=== PATIENT | female | born 1995 | race Caucasian/White ===

== ENCOUNTER 2021-02-09 19:28 | Emergency (ER) | payer OTHER ==
[2021-02-09 20:20] LABS: BILIRUBIN NEGATIVE (NEGATIVE); BLOOD NEGATIVE Ery/uL (NEGATIVE); CLARITY CLEAR (CLEAR); COLOR YELLOW (YELLOW); GLUCOSE (U) 3+ mg/dL (NORMAL); LEUKOCYTES 1+ Leu/uL (NEGATIVE); NITRITE NEGATIVE (NEGATIVE); PROTEIN NEGATIVE (NEGATIVE); SPECIFIC GRAVITY 1.015 (1.001-1.030); UROBILINOGEN 0.2 mg/dL (0.2-1.0)
[2021-02-09 20:35] LABS: BACTERIA 2+; URINARY WBC 20-50
[2021-02-09] MEDS ORDERED: BACTRIM DS TAB1 EACH PO (20:36)
[2021-02-09] MEDS ORDERED: PYRIDIUM200 MG PO (20:36)
== END 2021-02-09 20:52 | disposition home or self-care (01) ==
LOC: FER 19:28
PROVIDERS: Emergency Medicine
DX: N30.00 Acute cystitis without hematuria (principal); Z88.6 Allergy status to analgesic agent
CPT/HCPCS: 81001; 99283

== ENCOUNTER 2021-03-01 16:20 | Emergency (ER) | payer OTHER ==
[~2021-03-01 16:20] MED LIST: BACTRIM DS TAB1 EACH PO; PYRIDIUM200 MG PO
[2021-03-01] MEDS ORDERED: NAPROXEN500 MG PO (17:32)
[2021-03-01] MEDS ORDERED: BACLOFEN 10MG T10 MG PO (17:32)
== END 2021-03-01 17:52 | disposition home or self-care (01) ==
LOC: FER 16:20
DX: M25.512 Pain in left shoulder (principal); E11.9 Type 2 diabetes mellitus without complications; Z88.6 Allergy status to analgesic agent; V43.52XA Car driver injured in collision with other type car in traffic accident, initial encounter; Y92.410 Unspecified street and highway as the place of occurrence of the external cause
CPT/HCPCS: 73030; 96372; J1100; J1885